=== PATIENT | female | born 1995 | race Caucasian/White ===

== ENCOUNTER 2016-09-13 16:17 | Outpatient (CLI) | payer BC ==
[2016-09-13] MEDS ORDERED: Sodium Chloride 0.9% 2.5 ML Syringe FLUSH PRN (17:47)
[2016-09-13] MEDS ORDERED: Sodium Chloride 0.9% 10 ML Syringe FLUSH PRN (17:47)
[2016-09-13] MEDS: Lactated Ringers 1,000 ML IV ONE ×2 (18:18→19:42)
[2016-09-13] MEDS: Ondansetron 4 MG/2 ML SDV IVPUSH ONE ×2 (18:20→19:39)
== END 2016-09-13 22:04 | disposition home or self-care (01) ==
LOC: MW.OBCHECK 16:17 → MW.OB 16:18 → MW.OBCHECK 22:04
PROVIDERS: ATTEND Obstetrics & Gynecology
DX: O21.0 Mild hyperemesis gravidarum (principal); O36.8130 Decreased fetal movements, third trimester, not applicable or unspecified; O99.89 Other specified diseases and conditions complicating pregnancy, childbirth and the puerperium; R10.9 Unspecified abdominal pain; O47.03 False labor before 37 completed weeks of gestation, third trimester; Z3A.36 36 weeks gestation of pregnancy
CPT/HCPCS: 59025; 81003; 96361; 96374; J2405; J7120

== ENCOUNTER 2016-09-30 06:43 | Inpatient (IN) | payer BC ==
[2016-09-30] MEDS ORDERED: Sodium Chloride 0.9% 10 ML Syringe FLUSH PRN (07:18)
[2016-09-30] MEDS ORDERED: Carboprost Tromethamine 250 MCG/1 ML Amp IM PRN (07:18)
[2016-09-30] MEDS ORDERED: Methylergonovine 0.2 MG/1 ML Amp IM PRN (07:18)
[2016-09-30] MEDS ORDERED: Butorphanol 1 MG/ML SDV IVPUSH PRN (07:18)
[2016-09-30] MEDS ORDERED: Water For Irrigation,Sterile 1,000 ML Container IRR PRN (07:18)
[2016-09-30] MEDS ORDERED: Sodium Chloride 0.9% 2.5 ML Syringe FLUSH PRN (07:18)
[2016-09-30] MEDS ORDERED: Lidocaine 1% 50 ML MDV INJECT PRN (07:18)
[2016-09-30] MEDS ORDERED: Misoprostol 200 MCG Tab PO PRN (07:18)
[2016-09-30] MEDS ORDERED: Nalbuphine 10 MG/1 ML Vial IVPUSH PRN (07:18)
[2016-09-30] MEDS ORDERED: Lactated Ringers 1,000 ML IV SCH (07:30)
[2016-09-30] MEDS ORDERED: Oxytocin/Lactated Ringers 30 UNIT/500 ML BAG IV SCH (07:30)
--- NOTE | 2016-09-30 07:45 | PCM.LDHP ---
L&D History of Present Illness - General Date of Service: 09/30/16 Admit Problem/Dx: Patient Status Order with Admit Dx/Problem 09/30/16 06:49 Patient Status [ADT] Routine 09/30/16 07:18 Patient Status [ADT] Routine Admission Diagnosis/Problem Admission Diagnosis/Problem 09/30/16 07:40 21 yo here due to RUC. EDC 10/07/2016 39 0/7wks, O+, RI, GBS neg. VE 4- 5cm intact. Source of Information: Patient History Limitations: Reports: No limitations - History of Present Illness Introduction:: 21 yo here due to RUC. EDC 10/07/2016 39 0/7wks, O+, RI, GBS neg. VE 4- 5cm intact. 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 Other OB/BYN History: , h/o miscarriage on her 1st Social & Family History - Family History Family Medical History: Noncontributory - Tobacco Use Smoking Status *Q: Never Smoker Second Hand Smoke Exposure: Yes - Recreational Drug Use Recreational Drug Use: No H&P Review of Systems - Review of Systems: Review Of Systems: See Below General: Reports: no symptoms HEENT: Reports: no symptoms Pulmonary: Reports: No Symptoms Cardiovascular: Reports: no symptoms Gastrointestinal: Reports: No symptoms Genitourinary: Reports: no symptoms Musculoskeletal: Reports: no symptoms Skin: Reports: no symptoms Psychiatric: Reports: no symptoms Neurological: Reports: No Symptoms Hematologic/Lymphatic: Reports: no symptoms Immunologic: Reports: no symptoms L&D Exam - Exam Exam: See Below - Vital Signs Weight: 74.6 kg - OB Specific Fundal Height in cm: 39 - Exam General: alert, oriented, cooperative HEENT: Hearing intact Lungs: Normal respiratory effort Abdomen: soft (gravid) Rectal Exam: Deferred Genitourinary: Normal bimanual exam, Cervical dilitation (4-5cm dilitation) Back Exam: full range of motion Extremities: normal inspection Skin: warm, dry, intact Neurological: cranial nerves intact Psychiatric: alert, normal affect, normal mood - Problem List (1) Supervision of normal IUP (intrauterine ) in multigravida SNOMED Code(s): 785675541, 431902617, 583357795 ICD Code: Z34.90 - ENCNTR FOR SUPRVSN OF NORMAL , UNSP, UNSP TRIMESTER Status: Acute Priority: High Current Visit: Yes Qualifiers: Trimester: third trimester Qualified Code(s): Z34.93 - Encounter for supervision of normal , unspecified, third trimester Problem List Initiated/Reviewed/Updated: Yes Orders Last 24hrs: Active Orders 24 hr Category Date Time Status Patient Status [ADT] Routine ADT 09/30/16 07:18 Active Heart Tones [RC] CONTINUOUS Care 09/30/16 07:18 Active Non Stress Test [RC] PER UNIT ROUTINE Care 09/30/16 06:49 Active Non Stress Test [RC] PER UNIT ROUTINE Care 09/30/16 07:18 Active May Shower [RC] ASDIRECTED Care 09/30/16 07:18 Active Notify Provider [RC] PRN Care 09/30/16 07:18 Active Up ad Mirna [RC] ASDIRECTED Care 09/30/16 06:49 Active Up ad Mirna [RC] ASDIRECTED Care 09/30/16 07:18 Active Vaginal Exam [RC] Click To Edit Care 09/30/16 06:49 Active Vaginal Exam [RC] PRN Care 09/30/16 07:18 Active Vital Signs [RC] PER UNIT ROUTINE Care 09/30/16 06:49 Active Vital Signs [RC] PER UNIT ROUTINE Care 09/30/16 07:18 Active CBC W/O DIFF,HEMOGRAM [HEME] Routine Lab 09/30/16 07:18 Ordered TYPE AND SCREEN [BBK] Routine Lab 09/30/16 07:18 Ordered Butorphanol [Stadol] Med 09/30/16 07:18 Active 1 mg IVPUSH Q1H PRN Carboprost Tromethamine [Hemabate DS] Med 09/30/16 07:18 Active 250 mcg IM ASDIRECTED PRN Lactated Ringers [Ringers, Lactated] 1,000 ml Med 09/30/16 07:30 Active IV ASDIRECTED Lidocaine 1% [Xylocaine 1%] Med 09/30/16 07:18 Active 50 ml INJECT .ONCE PRN Methylergonovine [Methergine] Med 09/30/16 07:18 Active 0.2 mg IM ASDIRECTED PRN Misoprostol [Cytotec] Med 09/30/16 07:18 Active 200 mcg PO .ONCE PRN Nalbuphine [Nubain] Med 09/30/16 07:18 Active 10 mg IVPUSH Q1H PRN Oxytocin/Lactated Ringers [Pitocin in LR 30 Units/500 Med 09/30/16 07:30 Active ML] 30 unit in 500 ml IV TITRATE Sodium Chloride 0.9% [Saline Flush] Med 09/30/16 07:18 Active 10 ml FLUSH ASDIRECTED PRN Sodium Chloride 0.9% [Saline Flush] Med 09/30/16 07:18 Active 2.5 ml FLUSH ASDIRECTED PRN Water For Irrigation,Sterile [Sterile Water for Med 09/30/16 07:18 Active Irrigation] 1,000 ml IRR ASDIRECTED PRN Scalp Electrode [WOMSER] Per Unit Routine Oth 09/30/16 07:18 Ordered Peripheral IV Insertion Adult [OM.PC] Routine Oth 09/30/16 07:18 Ordered Resuscitation Status Routine Resus Stat 09/30/16 06:49 Ordered Medication Orders Butorphanol Tartrate (Stadol) 1 mg IVPUSH Q1H PRN PRN Reason: Pain Carboprost Tromethamine (Hemabate Ds) 250 mcg IM ASDIRECTED PRN PRN Reason: Post Hemorrhage Lactated Ringer's (Ringers, Lactated) 1,000 mls @ 150 mls/hr IV ASDIRECTED [facility] Oxytocin/Lactated Ringer's (Pitocin In Lr 30 Units/500 Ml) 30 unit in 500 mls @ 500 mls/hr IV TITRATE [facility] PRN Reason: 500 MUNITS/MIN Stop: 09/30/16 08:29 Lidocaine HCl (Xylocaine 1%) 50 ml INJECT .ONCE PRN PRN Reason: Laceration repair Methylergonovine Maleate (Methergine) 0.2 mg IM ASDIRECTED PRN PRN Reason: Post Hemorrhage Misoprostol (Cytotec) 200 mcg PO .ONCE PRN PRN Reason: Post Hemorrhage Nalbuphine HCl (Nubain) 10 mg IVPUSH Q1H PRN PRN Reason: Pain (severe 7-10) Stop: 09/30/16 09:19 Sodium Chloride (Saline Flush) 10 ml FLUSH ASDIRECTED PRN PRN Reason: Keep Vein Open Sodium Chloride (Saline Flush) 2.5 ml FLUSH ASDIRECTED PRN PRN Reason: Keep Vein Open Sterile Water (Sterile Water For Irrigation) 1,000 ml IRR ASDIRECTED PRN PRN Reason: delivery Assessment/Plan Comment:: Labor A: 21 yo here due to RUC. EDC 10/07/2016 39 0/7wks, O+, RI, GBS neg. VE 4- 5cm intact. P: Admit to L&D, epidural prn, anticipate
[2016-09-30] MEDS ORDERED: fentaNYL 100 MCG/2 ML SDV ONE ×2 (11:41→11:43)
[2016-09-30] MEDS ORDERED: Ropivacaine HCl/PF 100 ML ONE (11:43)
[2016-09-30] MEDS ORDERED: Ropivacaine 0.2% 2 MG/ML 20 ML SDV ONE (11:43)
--- NOTE | 2016-09-30 12:08 | PCM.PREANE ---
Preanesthetic Assessment - Anesthesia/Transfusion/Family Hx Anesthesia History: No Prior Anesthesia Transfusion History: No Prior Transfusion(s) - Review of Systems Other: Reports: None - Physical Assessment Height: 5 ft 2 in Weight: 74.6 kg ASA Class: 2 Mental Status: Alert & Oriented x3 Airway Class: Mallampati = 1 Dentition: Reports: Normal Dentition ROM/Head Extension: Full - Lab Values: Laboratory Last Values WBC 10.90 K/uL (4.0-11.0) 09/30/16 07:42 RBC 4.05 M/uL (4.30-5.90) L 09/30/16 07:42 Hgb 9.4 g/dL (12.0-16.0) L 09/30/16 07:42 Hct 29.9 % (36.0-46.0) L 09/30/16 07:42 MCV 73.8 fL (80.0-98.0) L 09/30/16 07:42 MCH 23.2 pg (27.0-32.0) L 09/30/16 07:42 MCHC 31.4 g/dL (31.0-37.0) 09/30/16 07:42 RDW Std Deviation 40.1 fl (28.0-62.0) 09/30/16 07:42 RDW Coeff of [place] 15 % (11.0-15.0) 09/30/16 07:42 Plt Count 260 K/uL (150-400) 09/30/16 07:42 MPV 9.60 fL (7.40-12.00) 09/30/16 07:42 Nucleated RBC % 0.0 /100WBC 09/30/16 07:42 Nucleated RBCs # 0 K/uL 09/30/16 07:42 Blood Type O POSITIVE 09/30/16 07:42 Antibody Screen NEGATIVE 09/30/16 07:42 - Allergies Allergies/Adverse Reactions: Allergies Allergy/AdvReac Type Severity Reaction Status Date / Time Latex, Natural Rubber Allergy Rash Verified 02/06/16 09:14 sulf Allergy Hives Uncoded 02/06/16 11:11 - Blood Blood Available: Yes Product(s) Available: PRBC - Acknowledgements Anesthesia Type Planned: Epidural Pt an Appropriate Candidate for the Planned Anesthesia: Yes Alternatives and Risks of Anesthesia Discussed w Pt/Guardian: Yes Pt/Guardian Understands and Agrees with Anesthesia Plan: Yes PreAnesthesia Questionnaire HEENT History: Reports: Impaired vision 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: , 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 Other OB/BYN History: , h/o miscarriage on her 1st Neurological History: Reports: Migraines, Seizure Other Neuro History: Seizure at age 16, no medication Hematologic History: Reports: Anemia - Infectious Disease History Infectious Disease History: Reports: Chicken pox - SUBSTANCE USE Smoking Status *Q: Never Smoker Second Hand Smoke Exposure: Yes Recreational Drug Use History: No - HOME MEDS Home Medications: Home Meds Hydrocodone/Acetaminophen [[place] 5-325] 1 tab PO Q6HR PRN 5 Days 02/06/16 [Rx] - CURRENT (IN HOUSE) MEDS Current Meds: Current Medications Butorphanol Tartrate (Stadol) 1 mg IVPUSH Q1H PRN PRN Reason: Pain Carboprost Tromethamine (Hemabate Ds) 250 mcg IM ASDIRECTED PRN PRN Reason: Post Hemorrhage Lactated Ringer's (Ringers, Lactated) 1,000 mls @ 150 mls/hr IV ASDIRECTED [facility] Last Admin: 09/30/16 11:14 Dose: 999 mls/hr Lidocaine HCl (Xylocaine 1%) 50 ml INJECT .ONCE PRN PRN Reason: Laceration repair Methylergonovine Maleate (Methergine) 0.2 mg IM ASDIRECTED PRN PRN Reason: Post Hemorrhage Misoprostol (Cytotec) 200 mcg PO .ONCE PRN PRN Reason: Post Hemorrhage Sodium Chloride (Saline Flush) 10 ml FLUSH ASDIRECTED PRN PRN Reason: Keep Vein Open Sodium Chloride (Saline Flush) 2.5 ml FLUSH ASDIRECTED PRN PRN Reason: Keep Vein Open Sterile Water (Sterile Water For Irrigation) 1,000 ml IRR ASDIRECTED PRN PRN Reason: delivery Discontinued Medications Fentanyl (Sublimaze) Confirm Administered Dose 100 mcg .ROUTE .STK-MED ONE Stop: 09/30/16 11:42 Fentanyl (Sublimaze) Confirm Administered Dose 100 mcg .ROUTE .STK-MED ONE Stop: 09/30/16 11:44 Oxytocin/Lactated Ringer's (Pitocin In Lr 30 Units/500 Ml) 30 unit in 500 mls @ 500 mls/hr IV TITRATE [facility] PRN Reason: 500 MUNITS/MIN Stop: 09/30/16 08:29 Ropivacaine (Naropin 0.2%) Confirm Administered Dose 100 mls @ as directed .ROUTE .STK-MED ONE Stop: 09/30/16 11:44 Nalbuphine HCl (Nubain) 10 mg IVPUSH Q1H PRN PRN Reason: Pain (severe 7-10) Stop: 09/30/16 09:19 Ropivacaine (Naropin 0.2%) Confirm Administered Dose 20 ml .ROUTE .STK-MED ONE Stop: 09/30/16 11:44
[2016-09-30] MEDS ORDERED: Witch Hazel Medicated Pads 40/Jar TOP PRN (14:10)
[2016-09-30] MEDS ORDERED: Ibuprofen 800 MG Tab PO PRN (14:10)
[2016-09-30] MEDS ORDERED: Ibuprofen 400 MG Tab PO PRN (14:10)
[2016-09-30] MEDS ORDERED: Acetaminophen 500 MG Tab PO PRN ×2 (14:10)
[2016-09-30] MEDS ORDERED: Bisacodyl 10 MG Supp RECTAL PRN (14:10)
[2016-09-30] MEDS ORDERED: oxyCODONE 5 MG Tab PO PRN (14:10)
[2016-09-30] MEDS ORDERED: Lanolin 100% Cream 7 GM Tube TOP PRN (14:10)
[2016-09-30] MEDS ORDERED: Docusate Sodium 100 MG Cap PO PRN (14:10)
[2016-09-30] MEDS ORDERED: Benzocaine/Menthol 20%-0.5% Spray 78 GM Cannister TOP PRN (14:10)
--- NOTE | 2016-09-30 14:17 | PCM.DEL ---
L & D Note - General Info Date of Service: 09/30/16 Mother's Due Date: 10/07/16 - Delivery Note Labor: spontaneous Delivery Outcome: Livebirth Infant Delivery Mode: Spontaneous Presentation: Vertex Nuchal cord: none Anesthesia Type: None Amniotic Fluid Description: Clear Episiotomy Type: None Laceration: none Placenta: intact, spontaneous Cord: 3 vessels Estimated blood loss: 150 : stimulated, warmed Score 1 min: 9 Score 5 min: 9 Second Stage Interventions: Reports: Pushing Effectively Delivery Comments (Free Text/Narrative):: of viable female over intact perineum. Head delivered with effective pushing, shoulders and body delivered easily. Spont cry, infant to mothers abd with RN at for evaluation. Delayed cord clamping. Pitocin to IVF, Cord clamped x2 and cut. Cord blood collected. Placenta delivered grossly intact. Inspection noted mod size hematoma at the apex of her vaginal opening. No lacerations noted. EBL 150cc. APGARS 9/9. and mother left in stable condition bonding well. - General Info Date of Service: 09/30/16 Admission Dx/Problem (Free Text): Patient Status Order with Admit Dx/Problem 09/30/16 06:49 Patient Status [ADT] Routine 09/30/16 07:18 Patient Status [ADT] Routine Admission Diagnosis/Problem Admission Diagnosis/Problem 09/30/16 07:40 21 yo here due to RUC. EDC 10/07/2016 39 0/7wks, O+, RI, GBS neg. VE 4- 5cm intact. Functional Status: Reports: pain controlled, tolerating diet - Review of Systems General: Reports: No Symptoms HEENT: Reports: no symptoms Pulmonary: Reports: no symptoms Cardiovascular: Reports: No Symptoms Gastrointestinal: Reports: No symptoms Genitourinary: Reports: no symptoms Musculoskeletal: Reports: no symptoms Skin: Reports: no symptoms Neurological: Reports: No Symptoms Psychiatric: Reports: no symptoms - Patient Data Weight - most recent: 74.6 kg Lab Results last 24 hrs: Laboratory Results - last 24 hr 09/30/16 09/30/16 Range/Units 07:42 07:42 WBC 10.90 (4.0-11.0) K/uL RBC 4.05 L (4.30-5.90) M/uL Hgb 9.4 L (12.0-16.0) g/dL Hct 29.9 L (36.0-46.0) % MCV 73.8 L (80.0-98.0) fL MCH 23.2 L (27.0-32.0) pg MCHC 31.4 (31.0-37.0) g/dL RDW Std Deviation 40.1 (28.0-62.0) fl RDW Coeff of [place] 15 (11.0-15.0) % Plt Count 260 (150-400) K/uL MPV 9.60 (7.40-12.00) fL Nucleated RBC % 0.0 /100WBC Nucleated RBCs # 0 K/uL Blood Type O POSITIVE Antibody Screen NEGATIVE Med Orders - Current: Current Medications Acetaminophen (Tylenol Extra Strength) 500 mg PO Q4H PRN PRN Reason: Pain Acetaminophen (Tylenol Extra Strength) 1,000 mg PO Q4H PRN PRN Reason: Pain Benzocaine/Menthol (Dermoplast Pain Relief 20%-0.5% [place]) 78 gm TOP ASDIRECTED PRN PRN Reason: Perineal Comfort Measure Bisacodyl (Dulcolax) 10 mg RECTAL .ONCE PRN PRN Reason: Constipation Docusate Sodium (Colace) 100 mg PO BID PRN PRN Reason: Constipation Emollient Ointment (Lansinoh Hpa) 0 gm TOP ASDIRECTED PRN PRN Reason: Sore Nipples Ibuprofen (Motrin) 400 mg PO Q4H PRN PRN Reason: Pain Ibuprofen (Motrin) 800 mg PO Q6H PRN PRN Reason: Pain Oxycodone HCl (Oxycodone) 5 mg PO Q2H PRN PRN Reason: Pain Witch Ivory (Tucks) 1 pad TOP ASDIRECTED PRN PRN Reason: comfort care Discontinued Medications Butorphanol Tartrate (Stadol) 1 mg IVPUSH Q1H PRN PRN Reason: Pain Carboprost Tromethamine (Hemabate Ds) 250 mcg IM ASDIRECTED PRN PRN Reason: Post Hemorrhage Fentanyl (Sublimaze) Confirm Administered Dose 100 mcg .ROUTE .STK-MED ONE Stop: 09/30/16 11:42 Fentanyl (Sublimaze) Confirm Administered Dose 100 mcg .ROUTE .STK-MED ONE Stop: 09/30/16 11:44 Lactated Ringer's (Ringers, Lactated) 1,000 mls @ 150 mls/hr IV ASDIRECTED [facility] Last Admin: 09/30/16 11:14 Dose: 999 mls/hr Oxytocin/Lactated Ringer's (Pitocin In Lr 30 Units/500 Ml) 30 unit in 500 mls @ 500 mls/hr IV TITRATE [facility] PRN Reason: 500 MUNITS/MIN Stop: 09/30/16 08:29 Ropivacaine (Naropin 0.2%) Confirm Administered Dose 100 mls @ as directed .ROUTE .STK-MED ONE Stop: 09/30/16 11:44 Lidocaine HCl (Xylocaine 1%) 50 ml INJECT .ONCE PRN PRN Reason: Laceration repair Methylergonovine Maleate (Methergine) 0.2 mg IM ASDIRECTED PRN PRN Reason: Post Hemorrhage Misoprostol (Cytotec) 200 mcg PO .ONCE PRN PRN Reason: Post Hemorrhage Nalbuphine HCl (Nubain) 10 mg IVPUSH Q1H PRN PRN Reason: Pain (severe 7-10) Stop: 09/30/16 09:19 Ropivacaine (Naropin 0.2%) Confirm Administered Dose 20 ml .ROUTE .STK-MED ONE Stop: 09/30/16 11:44 Sodium Chloride (Saline Flush) 10 ml FLUSH ASDIRECTED PRN PRN Reason: Keep Vein Open Sodium Chloride (Saline Flush) 2.5 ml FLUSH ASDIRECTED PRN PRN Reason: Keep Vein Open Sterile Water (Sterile Water For Irrigation) 1,000 ml IRR ASDIRECTED PRN PRN Reason: delivery - Exam General: alert, oriented HEENT: Mucous membr. moist/pink Neck: supple Lungs: Normal respiratory effort Abdomen: soft, no tenderness, no distension (Female) Exam: Normal bimanual exam, Vaginal bleeding Back Exam: full range of motion Extremities: no edema Skin: warm, dry, intact Wound/Incisions: healing well Neurological: no new focal deficit Psy/Mental Status: alert, normal affect, normal mood - Problem List & Annotations (1) Supervision of normal IUP (intrauterine ) in multigravida SNOMED Code(s): 610631421, 746218456, 491634233 Code(s): Z34.90 - ENCNTR FOR SUPRVSN OF NORMAL , UNSP, UNSP TRIMESTER Status: Acute Priority: High Current Visit: Yes Qualifiers: Trimester: third trimester Qualified Code(s): Z34.93 - Encounter for supervision of normal , unspecified, third trimester (2) (normal spontaneous vaginal delivery) SNOMED Code(s): 68563335 Code(s): O80 - ENCOUNTER FOR FULL-TERM UNCOMPLICATED DELIVERY Status: Acute Priority: Medium Current Visit: Yes - Problem List Review Problem List Initiated/Reviewed/Updated: Yes - My Orders Last 24 Hours: My Active Orders 09/30/16 07:18 Heart Tones [RC] CONTINUOUS Non Stress Test [RC] PER UNIT ROUTINE Vaginal Exam [RC] PRN Vital Signs [RC] PER UNIT ROUTINE 09/30/16 14:10 May Shower [RC] ASDIRECTED Up ad Mirna [RC] ASDIRECTED Vital Signs [RC] PER UNIT ROUTINE Acetaminophen [Tylenol Extra Strength] 1,000 mg PO Q4H PRN Acetaminophen [Tylenol Extra Strength] 500 mg PO Q4H PRN Benzocaine/Menthol [Dermoplast Pain Relief 20%-0.5% [place]] 78 gm TOP ASDIRECTED PRN Bisacodyl [Dulcolax] 10 mg RECTAL .ONCE PRN Docusate Sodium [Colace] 100 mg PO BID PRN Ibuprofen [Motrin] 400 mg PO Q4H PRN Ibuprofen [Motrin] 800 mg PO Q6H PRN Lanolin [Lansinoh HPA] See Dose Instructions TOP ASDIRECTED PRN Witch [place] [Tucks] 1 pad TOP ASDIRECTED PRN oxyCODONE 5 mg PO Q2H PRN Assess Lochia [WOMSER] Per Unit Routine Assess Uterine Involution [WOMSER] Per Unit Routine Peripheral IV Discontinue [OM.PC] Routine Resuscitation Status Routine 09/30/16 14:11 Patient Status [ADT] Routine 09/30/16 Dinner Regular Diet [DIET] - Assessment Assessment:: of viable female over intact perineum. EBL 150cc, APGARS 9/9. May d/c home tomorrow if mother and baby stable. - Plan Plan:: Labor A: 21 yo here due to RUC. EDC 10/07/2016 39 0/7wks, O+, RI, GBS neg. VE 4- 5cm intact. P: Admit to L&D, epidural prn, anticipate Post Routine pp plan of care
--- NOTE | 2016-09-30 19:31 | PCM48HPAN ---
Post Anesthesia Note - EVALUATION WITHIN 48HRS OF ANESTHETIC Vital Signs in Normal Range: Yes Patient Participated in Evaluation: Yes Respiratory Function Stable: Yes Airway Patent: Yes Cardiovascular Function Stable: Yes Hydration Status Stable: Yes Pain Control Satisfactory: Yes Nausea and Vomiting Control Satisfactory: Yes Mental Status Recovered: Yes
--- NOTE | 2016-10-01 09:43 | PCM.DCSUM1 ---
Discharge Summary - Hospital Course Free Text/Narrative:: Discharge home with . Follow up 6 weeks or sooner if needed. - Discharge Data Discharge Date: 10/01/16 Discharge Disposition: Home, Self-Care 01 Condition: Good - Discharge Diagnosis/Problem(s) (1) Supervision of normal IUP (intrauterine ) in multigravida SNOMED Code(s): 972170057, 055669342, 330846718 ICD Code: Z34.90 - ENCNTR FOR SUPRVSN OF NORMAL , UNSP, UNSP TRIMESTER Status: Acute Priority: High Current Visit: Yes Qualifiers: Trimester: third trimester Qualified Code(s): Z34.93 - Encounter for supervision of normal , unspecified, third trimester (2) (normal spontaneous vaginal delivery) SNOMED Code(s): 88186845 ICD Code: O80 - ENCOUNTER FOR FULL-TERM UNCOMPLICATED DELIVERY Status: Acute Priority: Medium Current Visit: Yes - Patient Instructions Diet: Usual Diet as Tolerated Activity: As Tolerated, Rest and Relax Today Driving: Do Not Drive Showering/Bathing: May Shower Notify Provider of: Fever, Increased Pain, Swelling and Redness, Nausea and/or Vomiting - Discharge Plan Home Medications: Home Meds Hydrocodone/Acetaminophen [[place] 5-325] 1 tab PO Q6HR PRN 5 Days 02/06/16 [Rx] Patient Handouts: Vaginal Delivery, Care After Referrals: [facility] [Outside] Renetta Cardona CNM [Primary Care Provider] - 11/04/16 9:30 am - General Info Date of Service: 10/01/16 Admission Dx/Problem (Free Text: Patient Status Order with Admit Dx/Problem 09/30/16 06:49 Patient Status [ADT] Routine 09/30/16 07:18 Patient Status [ADT] Routine Admission Diagnosis/Problem Admission Diagnosis/Problem 09/30/16 07:40 21 yo here due to RUC. EDC 10/07/2016 39 0/7wks, O+, RI, GBS neg. VE 4- 5cm intact. Functional Status: Reports: pain controlled, tolerating diet, ambulating, urinating - Review of Systems General: Reports: No Symptoms HEENT: Reports: no symptoms Pulmonary: Reports: no symptoms Cardiovascular: Reports: No Symptoms Gastrointestinal: Reports: No symptoms Genitourinary: Reports: no symptoms Musculoskeletal: Reports: no symptoms Skin: Reports: no symptoms Neurological: Reports: No Symptoms Psychiatric: Reports: no symptoms - Patient Data Vitals - Most Recent: Last Vital Signs Temp 37.2 C 10/01/16 08:00 Pulse 80 10/01/16 08:00 Resp 18 10/01/16 08:00 BP 112/62 10/01/16 08:00 Pulse Ox 96 10/01/16 08:00 Weight - Most Recent: 74.6 kg Med Orders - Current: Current Medications Acetaminophen (Tylenol Extra Strength) 500 mg PO Q4H PRN PRN Reason: Pain Acetaminophen (Tylenol Extra Strength) 1,000 mg PO Q4H PRN PRN Reason: Pain Last Admin: 09/30/16 23:16 Dose: 1,000 mg Benzocaine/Menthol (Dermoplast Pain Relief 20%-0.5% [place]) 78 gm TOP ASDIRECTED PRN PRN Reason: Perineal Comfort Measure Bisacodyl (Dulcolax) 10 mg RECTAL .ONCE PRN PRN Reason: Constipation Docusate Sodium (Colace) 100 mg PO BID PRN PRN Reason: Constipation Emollient Ointment (Lansinoh Hpa) 0 gm TOP ASDIRECTED PRN PRN Reason: Sore Nipples Ibuprofen (Motrin) 400 mg PO Q4H PRN PRN Reason: Pain Ibuprofen (Motrin) 800 mg PO Q6H PRN PRN Reason: Pain Oxycodone HCl (Oxycodone) 5 mg PO Q2H PRN PRN Reason: Pain Witch [place] (Tucks) 1 pad TOP ASDIRECTED PRN PRN Reason: comfort care Discontinued Medications Butorphanol Tartrate (Stadol) 1 mg IVPUSH Q1H PRN PRN Reason: Pain Carboprost Tromethamine (Hemabate Ds) 250 mcg IM ASDIRECTED PRN PRN Reason: Post Hemorrhage Fentanyl (Sublimaze) Confirm Administered Dose 100 mcg .ROUTE .STK-MED ONE Stop: 09/30/16 11:42 Last Admin: 09/30/16 18:54 Dose: Not Given Fentanyl (Sublimaze) Confirm Administered Dose 100 mcg .ROUTE .STK-MED ONE Stop: 09/30/16 11:44 Last Admin: 09/30/16 18:54 Dose: Not Given Lactated Ringer's (Ringers, Lactated) 1,000 mls @ 150 mls/hr IV ASDIRECTED [facility] Last Admin: 09/30/16 11:14 Dose: 999 mls/hr Oxytocin/Lactated Ringer's (Pitocin In Lr 30 Units/500 Ml) 30 unit in 500 mls @ 500 mls/hr IV TITRATE [facility] PRN Reason: 500 MUNITS/MIN Stop: 09/30/16 08:29 Last Admin: 09/30/16 18:53 Dose: Not Given Ropivacaine (Naropin 0.2%) Confirm Administered Dose 100 mls @ as directed .ROUTE .STK-MED ONE Stop: 09/30/16 11:44 Last Admin: 09/30/16 18:54 Dose: Not Given Lidocaine HCl (Xylocaine 1%) 50 ml INJECT .ONCE PRN PRN Reason: Laceration repair Methylergonovine Maleate (Methergine) 0.2 mg IM ASDIRECTED PRN PRN Reason: Post Hemorrhage Misoprostol (Cytotec) 200 mcg PO .ONCE PRN PRN Reason: Post Hemorrhage Nalbuphine HCl (Nubain) 10 mg IVPUSH Q1H PRN PRN Reason: Pain (severe 7-10) Stop: 09/30/16 09:19 Ropivacaine (Naropin 0.2%) Confirm Administered Dose 20 ml .ROUTE .STK-MED ONE Stop: 09/30/16 11:44 Last Admin: 09/30/16 18:54 Dose: Not Given Sodium Chloride (Saline Flush) 10 ml FLUSH ASDIRECTED PRN PRN Reason: Keep Vein Open Sodium Chloride (Saline Flush) 2.5 ml FLUSH ASDIRECTED PRN PRN Reason: Keep Vein Open Sterile Water (Sterile Water For Irrigation) 1,000 ml IRR ASDIRECTED PRN PRN Reason: delivery - Exam General: Reports: alert, oriented, cooperative, no acute distress Lungs: Reports: Normal respiratory effort Abdomen: Reports: soft, no tenderness, no distension (Female) Exam: Vaginal bleeding Rectal (Female) Exam: Deferred Back Exam: Reports: normal inspection Extremities: Reports: no edema Skin: Reports: warm, dry, intact Wound/Incisions: Reports: healing well Neurological: Reports: no new focal deficit Psy/Mental Status: Reports: alert, normal affect, normal mood *Q Meaningful Use (DIS) - VTE *Q VTE Criteria *Q: - Stroke *Q Stroke Criteria *Q: - AMI *Q AMI Criteria *Q:
[2016-10-01 16:35] VITALS: BP 110/68
== END 2016-10-01 16:30 | disposition home or self-care (01) | DRG 560 ==
LOC: MW.OB 06:43 → MW.OBCHECK 06:43 → MW.OB 07:18 → MW.OBCHECK 07:18 → OBSVTOIN 13:50 → MW.OB 20:15
PROVIDERS: ADMIT Obstetrics & Gynecology; ATTEND Obstetrics & Gynecology
PROC: 10E0XZZ Delivery of Products of Conception, External Approach (ICD-10-PCS; principal; 2016-09-30)
DX: O80 Encounter for full-term uncomplicated delivery (principal); Z3A.39 39 weeks gestation of pregnancy; Z37.0 Single live birth; Z88.2 Allergy status to sulfonamides; Z91.040 Latex allergy status
CPT/HCPCS: 01967; 36415; 59025; 85027; 86850; 86900; 86901; A9270-GY; J2795; J3010; J7120

== ENCOUNTER 2018-09-02 15:09 | Emergency (ER) | payer BC, OTHER ==
[2018-09-02] MEDS ORDERED: Sodium Chloride 0.9% 1,000 ML IV ONE (15:32)
[2018-09-02] MEDS ORDERED: Ondansetron 4 MG/2 ML SDV IVPUSH ONE (15:32)
[2018-09-02] MEDS ORDERED: Metoclopramide 10 MG/2 ML SDV IV ONE (15:32)
[2018-09-02] MEDS ORDERED: Ketorolac 30 MG/ML SDV IVPUSH ONE (15:33)
[2018-09-02] MEDS ORDERED: diphenhydrAMINE 50 MG/ML SDV IVPUSH ONE (15:33)
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
[2018-09-02 17:27] VITALS: BP 106/70
== END 2018-09-02 17:27 | disposition home or self-care (01) ==
LOC: MW.ED 15:09
DX: G44.89 Other headache syndrome (principal); F17.210 Nicotine dependence, cigarettes, uncomplicated; Z88.2 Allergy status to sulfonamides; Z88.8 Allergy status to other drugs, medicaments and biological substances; Z91.040 Latex allergy status
CPT/HCPCS: 70450; 96361; 96374; 96375; 99284; J1200; J1885; J2405; J2765; J7040